=== PATIENT | female | born 1955 | race Asian ===

== ENCOUNTER 2016-10-26 09:48 | Emergency (ER) | payer OTHER ==
[~2016-10-26] VITALS: Ht 157.5 cm; Wt 48.2 kg
[2016-10-26] MEDS ORDERED: ACETAMINOPHEN 325 MG TABLET PO ONE (11:00)
[2016-10-26 12:54] VITALS: BP 110/68
== END 2016-10-26 12:55 | disposition home or self-care (01) ==
LOC: EMS 09:54
DX: S63.502A Unspecified sprain of left wrist, initial encounter (principal); S20.219A Contusion of unspecified front wall of thorax, initial encounter; V43.62XA Car passenger injured in collision with other type car in traffic accident, initial encounter; Y93.89 Activity, other specified; Y92.89 Other specified places as the place of occurrence of the external cause; Y99.8 Other external cause status
CPT/HCPCS: 99284